=== PATIENT | male | born 1985 | race African-American/Black ===

== ENCOUNTER 2020-11-08 03:08 | Emergency (ER) | payer OTHER ==
[~2020-11-08] VITALS: Ht 182.9 cm; Wt 75.0 kg
[2020-11-08 03:18] VITALS: BP 149/106
== END 2020-11-08 03:47 ==
LOC: ER 03:09
DX: Z04.1 Encounter for examination and observation following transport accident (principal); V87.7XXA Person injured in collision between other specified motor vehicles (traffic), initial encounter; Y93.89 Activity, other specified; Y92.89 Other specified places as the place of occurrence of the external cause; Y99.8 Other external cause status
CPT/HCPCS: 99283

== ENCOUNTER 2020-12-17 11:59 | Emergency (ER) | payer OTHER ==
[~2020-12-17] VITALS: Ht 182.9 cm; Wt 73.3 kg
[2020-12-17 12:40] VITALS: BP 176/115
[2020-12-17 14:12] LABS: CLARITY,URINE CLOUDY (Clear); COLOR,URINE YELLOW (Yellow); GLUCOSE, URINE NEGATIVE (Neg); KETONES,URINE TRACE mg/dl (Neg); LEUKOCYTE ESTERASE ,URINE SMALL (Neg); NITRITES, URINE NEGATIVE (Neg); OCCULT BLOOD,URINE LARGE (Neg); PH,URINE 5.5 (4.8-8.0); PROTEIN,URINE 100 mg/dl (Neg); UROBILINOGEN,URINE 0.2 E.U/dL (0.2-1.0)
[2020-12-17 14:20] LABS: UA COLLECTION TYPE CLN CATCH MIDSTREAM
[2020-12-17 14:21] LABS: WBC,URINE TNTC /HPF (0-4)
[2020-12-17 14:22] LABS: BACTERIA,URINE 2+ /HPF (Neg); SQUAMOUS EPITHELIAL CELL,UR FEW /LPF (FEW)
[2020-12-17] MEDS ORDERED: CefTRIAXone 1000mg IM Kit (w/lidocaine diluent) IM STA (14:37)
[2020-12-17] MEDS ORDERED: SULF1TAB49 PO (14:37)
[2020-12-17] MEDS ORDERED: azithromycin 250mg tablet PO ONE (14:40)
== END 2020-12-17 15:52 | disposition home or self-care (01) ==
LOC: ER 12:00
DX: N39.0 Urinary tract infection, site not specified (principal); R31.9 Hematuria, unspecified; R30.0 Dysuria; Z79.2 Long term (current) use of antibiotics
CPT/HCPCS: 36415; 81001; 87088; 87491; 87591; 96372; 99283; J0696